=== PATIENT | female | born 1965 | race American Indian/Alaskan Native ===

== ENCOUNTER 2018-04-17 19:26 | Emergency (ER) | payer OTHER ==
[2018-04-17 20:17] LABS: Basophils % (Auto) 0.7 % (0.0-1.8); Eosinophils # (Auto) 0.1 K/mm3 (0.0-0.4); Eosinophils % (Auto) 1.4 % (0.0-4.3); Hematocrit 40.3 % (30.3-42.9); Hemoglobin 13.3 gm/dl (10.1-14.3); Lymphocytes # (Auto) 1.7 K/mm3 (1.2-5.4); Lymphocytes % (Auto) 25.6 % (13.4-35.0); Mean Corpuscular HGB Conc 33 % (30-34); Mean Corpuscular Volume 87 fl (79-97); Monocytes # (Auto) 0.5 K/mm3 (0.0-0.8); Monocytes % (Auto) 6.9 % (0.0-7.3); Platelet Count 201 K/mm3 (140-440); Red Blood Count 4.63 M/mm3 (3.65-5.03); Red Cell Distribution Width 14.8 % (13.2-15.2)
[2018-04-17] MEDS ORDERED: PEPCID IV ONE (20:20)
[2018-04-17] MEDS ORDERED: TORADOL IV ONE (20:20)
[2018-04-17] MEDS ORDERED: SUBLIMAZE IV ONE (20:20)
--- NOTE | 2018-04-17 20:20 | Emergency Department Report ---
ED Chest Pain HPI - General Chief Complaint: Chest Pain Stated Complaint: CHEST PAIN Time Seen by Provider: 04/17/18 20:10 Source: patient, RN notes reviewed Mode of arrival: Ambulatory Limitations: No Limitations - History of Present Illness Initial Comments: This is a 52-year-old female who is not known to this provider previously. She reports no chronic medical conditions, and follows at [facility]. She has taken aspirin within the past week, but denies cocaine use, and denies DVT, pulmonary embolus risk factors. She presents to the ER with a complaint of one week intermittent left-sided chest wall pain, which is intermittent, does not r adiate to the back, arms or neck, increases with palpation, decreased with IV pain medication in the emergency room, it is not associated with vomiting, diaphoresis or shortness of breath. She reports that the pain has been intermittent over the past week, she typically [place], and reports that it got worse, at 640 this morning. MD Complaint: chest pain -: Gradual, days(s) Pain Location: left chest Pain Radiation: none Severity: moderate Quality: aching, heaviness Consistency: intermittent Improves With: nothing Worsens With: nothing Aspirin use within the Past 7 Days: (1) Yes - Related Data On Oral Contraceptives: No Previous Rx's Medication Instructions Recorded Last Taken Type Acetaminophen [Tylenol Arthritis] 650 mg PO Q6HR PRN #30 tablet.er 04/17/18 Unknown Rx Aspirin [Aspirin BABY CHEW TAB] 81 mg PO QDAY #30 tab.chew 04/17/18 Unknown Rx Ibuprofen [Motrin] 600 mg PO Q8H PRN #30 tablet 04/17/18 Unknown Rx Allergies Allergy/AdvReac Type Severity Reaction Status Date / Time No Known Allergies Allergy Unverified 04/17/18 19:45 Heart Score - HEART Score History: Slightly suspicious EKG: Non-specific Age: 45-65 Risk factors: No known risk factors Troponin: < normal limit HEART Score: 2 - Critical Actions Critical Actions: 0-3 pts:0.9-1.7%risk of adverse cardiac event.Candidate for discharge ED Review of Systems ROS: Stated complaint: CHEST PAIN Other details as noted in HPI Constitutional: denies: fever, malaise Eyes: denies: vision change ENT: denies: epistaxis Respiratory: denies: cough, shortness of breath Cardiovascular: chest pain Gastrointestinal: denies: nausea, vomiting Genitourinary: denies: dysuria Musculoskeletal: denies: back pain, arthralgia, myalgia Skin: denies: lesions Neurological: denies: weakness Psychiatric: anxiety ED Past Medical Hx - Past Medical History Previous Medical History?: No - Surgical History Past Surgical History?: Yes Additional Surgical History: LEFT ANKLE SURGERY NOV 2016 - Social History Smoking Status: Never Smoker Substance Use Type: None - Medications Home Medications: Home Medications Medication Instructions Recorded Confirmed Last Taken Type Acetaminophen [Tylenol Arthritis] 650 mg PO Q6HR PRN #30 tablet.er 04/17/18 Unknown Rx Aspirin [Aspirin BABY CHEW TAB] 81 mg PO QDAY #30 tab.chew 04/17/18 Unknown Rx Ibuprofen [Motrin] 600 mg PO Q8H PRN #30 tablet 04/17/18 Unknown Rx ED Physical Exam - General Limitations: No Limitations General appearance: alert, anxious, in distress, obese - Head Head exam: Present: atraumatic, normocephalic - Eye Eye exam: Present: normal appearance, EOMI. Absent: nystagmus - ENT ENT exam: Present: normal exam, normal orophraynx, mucous membranes moist, normal external ear exam - Neck Neck exam: Present: normal inspection, full ROM. Absent: tenderness, meningismus - Respiratory Respiratory exam: Present: normal lung sounds bilaterally, chest wall tenderness, other (there is no breast redness, pus, streaking. The compartments are soft. There is reproducible central chest wall pain and left-sided breast tenderness. Chaperoned by nurse Mckenzie Figueredo). Absent: respiratory distress, wheezes, rales, rhonchi, stridor - Cardiovascular Cardiovascular Exam: Present: regular rate, normal rhythm, normal heart sounds. Absent: bradycardia, tachycardia, irregular rhythm, systolic murmur, diastolic murmur, rubs, gallop - GI/Abdominal GI/Abdominal exam: Present: soft. Absent: distended, tenderness, guarding, rebound, rigid, pulsatile mass - Extremities Exam Extremities exam: Present: normal inspection, full ROM, other (2+ pulses noted in the bilateral upper, lower extremities. Compartments soft. No long bony tenderness. The pelvis is stable.). Absent: pedal edema, joint swelling, calf tenderness - Back Exam Back exam: Present: normal inspection, full ROM. Absent: paraspinal tenderness, vertebral tenderness - Neurological Exam Neurological exam: Present: alert, oriented X3, CN II-XII intact, normal gait, other (Extraocular movements intact. Tongue midline. No facial droop. Facial sensation intact to light touch in the V1, V2, V3 distribution bilaterally. 5 and 5 strength in 4 extremities.. Sensation is intact to light touch in 4 extremities.). Absent: motor sensory deficit - Psychiatric Psychiatric exam: Present: anxious - Skin Skin exam: Present: warm, dry, intact, normal color. Absent: rash ED Course Vital Signs 04/17/18 04/17/18 04/17/18 19:45 20:24 20:31 Temperature 98.3 F Pulse Rate 72 69 73 Respiratory 12 16 11 L Rate Blood Pressure 180/99 160/71 O2 Sat by Pulse 98 85 Oximetry 04/17/18 04/17/18 04/17/18 20:45 21:00 21:15 Temperature Pulse Rate 75 73 67 Respiratory 8 L 10 L 12 Rate Blood Pressure 160/71 170/96 170/96 O2 Sat by Pulse 97 100 Oximetry 04/17/18 04/17/18 04/17/18 21:31 21:45 22:01 Temperature Pulse Rate 73 68 66 Respiratory 14 12 9 L Rate Blood Pressure 152/83 160/71 148/73 O2 Sat by Pulse 99 100 100 Oximetry 04/17/18 04/17/18 04/17/18 22:15 22:17 22:31 Temperature Pulse Rate 71 70 Respiratory 14 18 15 Rate Blood Pressure 148/73 134/88 O2 Sat by Pulse 93 98 98 Oximetry - Reevaluation(s) Reevaluation #1: 04/17/18 22:29 Differential diagnosis, including without limited to, costochondritis, GERD, gastritis, hiatal hernia, acute coronary syndrome, pneumonia, pneumothorax Chief medical diagnosis: Costochondritis Assessment and plan: 52-year-old female with left-sided reproducible chest wall pain, present 1 week, intermittent, nonexertional, with no DVT, pulmonary embolus risk factors. Patient low risk by well's criteria, and objectively speaking, appears to be low risk by the heart score, JABARI score. Given that pain present intermittently times one week, troponin negative 1, very unlikely to be manifestation of acute coronary syndrome. Patient at low risk for major adverse cardiac event extensive discussion held with patient regarding options for cardiac risk stratification. Informed her that it would be reasonable to have her closely follow up as an outpatient for stress test, or that she could also be admitted for inpatient cardiac risk stratification. Through shared decision making, the patient indicates that she would prefer to follow up as an outpatient, and indicates that she is reliable to follow up with outpatient cardiology, assuming repeat EKG and troponin do not demonstrate any significant interval change. Patient is currently resting on a cellular phone, in no acute distress, and reports improvement in her pain. Reevaluation #2: 04/17/18 23:25 Troponin is negative 2. Repeat EKG appears to be unchanged, with the exception of a negatively deflected QRS complex in lead 3. Vital signs remained stable, and elevated blood pressure has resolved. We will start the patient on aspirin, for her to outpatient cardiology, she understands that she can come back right away if when she changes her mind. JABARI score - Jabari Score Age > 65: (0) No Aspirin use within the Past 7 Days: (1) Yes 3 or more CAD Risk Factors: (0) No 2 or more Angina events in past 24 hrs: (0) No Known CAD with more than 50% Stenosis: (0) No Elevated Cardiac Markers: (0) No ST Deviation Greater than 0.5mm: (0) No JABARI Score: 1 ED Medical Decision Making - Lab Data Result diagrams: 04/17/18 19:59 04/17/18 19:59 Vital Signs 04/17/18 04/17/18 19:45 22:17 Temperature 98.3 F Pulse Rate 72 Respiratory 12 18 Rate Blood Pressure 180/99 O2 Sat by Pulse 98 98 Oximetry Lab Results 04/17/18 04/17/18 Range/Units 19:59 19:59 WBC 6.8 (4.5-11.0) K/mm3 RBC 4.63 (3.65-5.03) M/mm3 Hgb 13.3 (10.1-14.3) gm/dl Hct 40.3 (30.3-42.9) % MCV 87 (79-97) fl MCH 29 (28-32) pg MCHC 33 (30-34) % RDW 14.8 (13.2-15.2) % Plt Count 201 (140-440) K/mm3 Lymph % (Auto) 25.6 (13.4-35.0) % Motley % (Auto) 6.9 (0.0-7.3) % Eos % (Auto) 1.4 (0.0-4.3) % Baso % (Auto) 0.7 (0.0-1.8) % Lymph # 1.7 (1.2-5.4) K/mm3 Motley # 0.5 (0.0-0.8) K/mm3 Eos # 0.1 (0.0-0.4) K/mm3 Baso # 0.0 (0.0-0.1) K/mm3 Seg Neutrophils % 65.4 (40.0-70.0) % Seg Neutrophils # 4.4 (1.8-7.7) K/mm3 Sodium 142 (137-145) mmol/L Potassium 4.1 (3.6-5.0) mmol/L Chloride 104.9 (98-107) mmol/L Carbon Dioxide 28 (22-30) mmol/L Anion Gap 13 mmol/L BUN 16 (7-17) mg/dL Creatinine 0.8 (0.7-1.2) mg/dL Estimated GFR > 60 ml/min BUN/Creatinine Ratio 20 % Glucose 98 (65-100) mg/dL Calcium 9.3 (8.4-10.2) mg/dL Troponin T < 0.010 (0.00-0.029) ng/mL - EKG Data -: EKG Interpreted by Me EKG shows normal: sinus rhythm Rate: normal - EKG Data When compared to previous EKG there are: previous EKG unavailable 04/17/18 22:29 Sinus, 66 bpm, normal axis, normal intervals, poor color progression, nonspe cific T-wave abnormality in lead V3, abnormal EKG, not consistent with ST elevation myocardial infarction - Radiology Data Radiology results: report reviewed, image reviewed X-ray of the chest is negative for acute disease Critical care attestation.: If time is entered above; I have spent that time in minutes in the direct care of this critically ill patient, excluding procedure time. ED Disposition Clinical Impression: Chest wall pain Disposition: - TO HOME OR SELFCARE Is pt being admited?: No Does the pt Need Aspirin: No Condition: Stable Instructions: Chest Pain (ED), Costochondritis (ED) Additional Instructions: Take the medications as needed/directed. Follow up with a fresh foods cake decorator within the next 3 days. Return to the ER right away with new pain, worsened pain, migration of pain, projectile vomiting, change in mental status, confusion, inability to speak, inability to breathe, new, worse or different symptoms. Referrals: [facility] [Other] - 3-5 Days [facility] [Provider Group] - 3-5 Days [facility] [Provider Group] - 3-5 Days
[2018-04-17 20:28] LABS: BUN/Creatinine Ratio 20; Blood Urea Nitrogen 16 mg/dL (7-17); Calcium 9.3 mg/dL (8.4-10.2); Hemolysis Index 8
--- NOTE | 2018-04-17 22:12 | XRay Report ---
FINAL REPORT EXAM: XR CHEST ROUTINE 2V HISTORY: cp TECHNIQUE: Two view chest PA and lateral PRIORS: None. FINDINGS: Cardiac and mediastinal contours are unremarkable. No focal pulmonary infiltrate is identified. No pleural fluid collection seen. Pulmonary vasculature is unremarkable. IMPRESSION: Negative two-view chest
[2018-04-17 23:46] VITALS: BP 148/73
== END 2018-04-18 00:38 | disposition home or self-care (01) ==
LOC: ED 19:26
DX: R07.89 Other chest pain (principal); Z79.82 Long term (current) use of aspirin; F41.9 Anxiety disorder, unspecified
CPT/HCPCS: 36415; 71046; 80048; 84484; 85025; 93005; 93010; 96374; 96375; 99284; J1885; J3010

== ENCOUNTER 2018-05-23 23:20 | Emergency (ER) | payer OTHER ==
--- NOTE | 2018-05-24 00:06 | Emergency Department Report ---
Upper Extremity - HPI Chief Complaint: Extremity Injury, Upper Stated Complaint: LEFT SHOULDER PAIN Time Seen by Provider: 05/23/18 23:26 Upper Extremity: Left Shoulder Occurred When: >5 Days (10 days) Severity: severe Symptoms: Yes Pain with Movement, Yes Limited Range of Movement, No Deformity, No Numbness, No Weakness, No Swelling, No Bruising/Ecchymosis Other History: 52-year-old -[place] female comes in complaining of left shoulder pain for 10 days. 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 Patient reports that she is not able to fully rotate her shoulder difficulty to lift above her head. Patient has been taking [id number] Tylenol for pain management. Patient has no significant past medical history pertaining to initial complaint. Patient has no known drug allergies. ED Review of Systems ROS: Stated complaint: LEFT SHOULDER PAIN Other details as noted in HPI Comment: All other systems reviewed and negative Constitutional: denies: chills, fever Eyes: denies: eye pain, eye discharge, vision change ENT: denies: ear pain, throat pain Respiratory: denies: cough, shortness of breath, wheezing Musculoskeletal: arthralgia (left shoulder) ED Past Medical Hx - Surgical History Additional Surgical History: LEFT ANKLE SURGERY NOV 2016 - Social History Smoking Status: Never Smoker Substance Use Type: None - Medications Home Medications: Home Medications Medication Instructions Recorded Confirmed Last Taken Type Acetaminophen [Tylenol Arthritis] 650 mg PO Q6HR PRN #30 tablet.er 04/17/18 Unknown Rx Aspirin [Aspirin BABY CHEW TAB] 81 mg PO QDAY #30 tab.chew 04/17/18 Unknown Rx Baclofen [Lioresal] 10 mg PO TID #20 tab 05/24/18 Unknown Rx Ibuprofen [Motrin 600 MG tab] 600 mg PO Q8H PRN #30 tablet 05/24/18 Unknown Rx traMADol [Ultram 50 MG tab] 50 mg PO Q6HR PRN #15 tablet 05/24/18 Unknown Rx Upper Extremity Exam - Exam General: Vital signs noted. No distress. Alert and acting appropriately. Head and Torso: No HEENT Abnormality, No Neck Tenderness, No Chest/Lungs Ab normality, No Abdominal Tenderness, No Back Tenderness Shoulder Exam: Yes Shoulder Tenderness, Yes AC Joint Tenderness, No Clavicle Tenderness, No Normal Range of Motion in Shoulder, No Shoulder Deformity Arm Exam: Yes Arm/Humerus Tenderness, No Arm Deformity Elbow: No Elbow Tenderness, No Normal Range of Motion in Elbow, No Elbow Deformity Forearm: No Forearm Tenderness, No Forearm Deformity, No Pain with Pronation, No Pain with Supination Wrist: Yes Normal ROM in Wrist, No Wrist Tenderness, No Wrist Deformity, No Snuffbox Tenderness, No Pain with Axial Thumb Compression Hand: Yes Normal ROM in Digit(s), No Hand Tenderness, No Hand Deformity, No Digit Tenderness, No Digit(s) Deformity, No Tendon Dysfunction CMS Exam: Yes Normal Distal Pulses, Yes Normal Capillary Refill, Yes Normal Distal Sensation, No Broken Skin Critical care attestation.: If time is entered above; I have spent that time in minutes in the direct care of this critically ill patient, excluding procedure time. ED Disposition Clinical Impression: Muscle strain of left shoulder region Qualifiers: Encounter type: initial encounter Qualified Code(s): S46.912A - Strain of unspecified muscle, fascia and tendon at shoulder and upper arm level, left arm, initial encounter Disposition: TO HOME OR SELFCARE Is pt being admited?: No Does the pt Need Aspirin: No Condition: Stable Additional Instructions: Please take pain medication as prescribed. Is very important for her to follow up with orthopedic provider as she may need an MRI for further evaluation of your left shoulder. I have referred her to an orthopedic provider information is listed below. For your convenience. Prescriptions: Baclofen [Lioresal] 10 mg PO TID #20 tab Ibuprofen [Motrin 600 MG tab] 600 mg PO Q8H PRN #30 tablet PRN Reason: Pain traMADol [Ultram 50 MG tab] 50 mg PO Q6HR PRN #15 tablet PRN Reason: Pain [facility] Care Provider[facility] - 3-5 Days DONNA TRUJILLO MD [Staff Physician] - 3-5 Days Forms: Work/School Release Form(ED)
[2018-05-24] MEDS ORDERED: TORADOL IM ONE (00:07)
[2018-05-24 00:08] VITALS: BP 132/83
[2018-05-24] MEDS ORDERED: DECADRON IM ONE (00:15)
--- NOTE | 2018-05-24 00:18 | XRay Report ---
FINAL REPORT PROCEDURE: XR SHOULDER 2+V LT TECHNIQUE: LEFT shoulder radiographs including AP views in internal and external rotation and abduct ion. CPT 10517 HISTORY: left shoulder pain difficulty with range of motion COMPARISON: No prior studies are available for comparison. FINDINGS: Fracture (s) and/or Dislocation(s): None . Joint space(s): Normal . Soft tissues: Normal . Bone mineralization: Normal . Foreign bodies: None . IMPRESSION: Normal Examination
[2018-05-24] MEDS: DECADRON IV ONE ×2 (00:23→00:24)
== END 2018-05-24 00:29 | disposition home or self-care (01) ==
LOC: ED 23:20
DX: S46.912A Strain of unspecified muscle, fascia and tendon at shoulder and upper arm level, left arm, initial encounter (principal); X58.XXXA Exposure to other specified factors, initial encounter; Y93.89 Activity, other specified; Y92.89 Other specified places as the place of occurrence of the external cause; Y99.8 Other external cause status
CPT/HCPCS: 73030; 96372; 99283; J1100; J1885